=== PATIENT | male | born 2000 | race Hispanic/Latino ===

== ENCOUNTER 2022-06-20 19:51 | Emergency (ER) | payer OTHER ==
[2022-06-20] MEDS ORDERED: Lidocaine 1% w/Epinephrine 1:100K 20 ML VIAL ONE (20:41)
== END 2022-06-20 21:04 | disposition home or self-care (01) ==
LOC: ERS 19:51
DX: S61.011A Laceration without foreign body of right thumb without damage to nail, initial encounter (principal); W25.XXXA Contact with sharp glass, initial encounter
CPT/HCPCS: 12001